=== PATIENT | male | born 1985 | race Caucasian/White ===

== ENCOUNTER 2020-10-11 08:31 | Emergency (ER) | payer BC, SELFPAY ==
--- NOTE | 2020-10-11 08:47 | ED.GENADULT ---
HPI - General Adult General Stated complaint: tooth ache Time Seen by Provider: 10/11/20 08:47 Source: patient Mode of arrival: ambulatory Limitations: no limitations History of Present Illness HPI narrative: 35-year-old male patient presents to the [facility] with complaints of right-sided upper and lower dental pain. Patient states he has had this pain now for about 4 days. Patient states he has had issues with dental infections before in the past. Patient states he does have an appointment to see a dentist this coming October 13 but states he continues to have pain and wanted to see if he needed an antibiotic. Patient states he has been taking Tylenol for pain. Denies fevers, body aches or chills. Denies any nausea, vomiting or diarrhea. Patient is up-to-date on all of his vaccines including his Covid vaccine. Related Data Allergies Allergy/AdvReac Type Severity Reaction Status Date / Time No Known Allergies Allergy Verified 10/11/20 08:56 Review of Systems Review of Systems: Narrative: CONSTITUTIONAL: Denies fever, chills, or sweats. EYES: Denies visual changes, redness, or discharge. ENT: Denies rhinorrhea, congestion, sore throat, or otalgia. Positive right sided upper and lower dental pain x4 days CARDIOVASCULAR: Denies chest pain, palpitations, or edema. RESPIRATORY: Denies cough or dyspnea. GASTROINTESTINAL: Denies abdominal pain, nausea, vomiting, or diarrhea. GENITOURINARY: Denies dysuria or hematuria. SKIN: Denies rash or itching. MUSCULOSKELETAL: Denies back pain, joint pain, or myalgia. NEUROLOGIC: Denies headache, numbness, or weakness. PSYCHIATRIC: Denies anxiety or depression. [facility] Past Medical History Medical History (Updated 10/11/20 @ 09:08 by ANYA Hollins) Hypothyroidism Comments At the time of my signature I agree with nursing past medical history, surgical, social, and family history. There is no relevant family history pertinent to the presenting complaint. Exam Narrative: Exam Narrative: GENERAL: Well-appearing, well-nourished, and in no acute distress. HEAD: Normocephalic, atraumatic. EYES: PERRLA and EOMI. ENT: Nares clear, no rhinorrhea or epistaxis. Mucous membranes moist. Patient has infected dental caries noted to the back 3 lower teeth on the right side with surrounding erythema, swelling and tenderness on palpation. There is no active discharge at this time. Patient also appears to have a hole in one of his teeth on the right upper canine with swelling and erythema present to the gum above it. There is tenderness on palpation to this. No outer cheek swelling noted at this time. Patient able to tolerate secretions well. No obvious abscesses noted at this time. NECK: Supple. No lymphadenopathy CHEST: Clear to auscultation. No respiratory distress. HEART: Regular rate and rhythm. No murmur heard. Normal peripheral pulses. ABDOMEN: Soft, nontender, nondistended, normal active bowel sounds. EXTREMITIES: Normal range of motion. No edema. SKIN: Warm, dry, no rash. NEURO: No focal deficits. Alert and oriented x3. Course Vital Signs Vital signs: Vital Signs Temperature 36.9 C 10/11/20 08:49 Pulse Rate 77 10/11/20 08:49 Respiratory Rate 24 H 10/11/20 08:49 Blood Pressure 156/89 H 10/11/20 08:49 Pulse Oximetry 99 10/11/20 08:49 Temperature 36.9 C 10/11/20 08:49 Pulse Rate 77 10/11/20 08:49 Respiratory Rate 24 H 10/11/20 08:49 Blood Pressure 156/89 H 10/11/20 08:49 Pulse Oximetry 99 10/11/20 08:49 Vital signs reviewed The patient has been informed that they may have pre-hypertension or Hypertension based on a BP reading in the department. I recommend that the patient call the primary care provider listed on their discharge instructions or a physician of their choice this week to arrange follow up for further evaluation of possible pre-hypertension or Hypertension Medical Decision Making Differential Diagnosis Differential Diagnosis: Differential di
[2020-10-11 08:49] VITALS: BP 156/89; PULSE 77; RESP 24; TEMP 36.9; O2SAT 99
== END 2020-10-11 09:01 | disposition home or self-care (01) ==
PROVIDERS: Emergency Provider Nurse Practitioner Family; PCP Nurse Practitioner Adult Health
DX: K02.9 Dental caries, unspecified (principal); E03.9 Hypothyroidism, unspecified
CPT/HCPCS: 99213; G0463

== ENCOUNTER 2024-05-16 09:21 | Emergency (ER) | payer OTHER, SELFPAY ==
[2024-05-16 09:32] VITALS: BP 143/77; PULSE 68; RESP 20; TEMP 36.6; O2SAT 97
--- NOTE | 2024-05-16 09:49 | ED.GENADULT ---
HPI - General Adult General Chief complaint: Upper Respiratory Infection Stated complaint: diarrhea/fatigue/work note Time Seen by Provider: 05/16/24 09:49 Source: patient and RN notes reviewed Mode of arrival: ambulatory Limitations: no limitations History of Present Illness HPI narrative: 38-year-old male presented for complaint of diarrhea. Onset 0300. States he felt queasy last night 2200. Denies abdominal pain, hematochezia, melena, fever or vomiting. Took pepto at 0700. Called into work. Denies sick contacts. Related Data Home Medications ?Medication ?Instructions ?Recorded ?Confirmed ?Last Taken ?Type levothyroxine 75 mcg tablet 10/11/20 Unknown History Allergies Allergy/AdvReac Type Severity Reaction Status Date / Time No Known Allergies Allergy Verified 05/16/24 09:44 Review of Systems Review of Systems: CONSTITUTIONAL: Denies body aches, fever, chills ENT: Denies rhinorrhea, congestion CARDIOVASCULAR: Denies chest pain, palpitations, or edema. RESPIRATORY: Denies cough or dyspnea. GASTROINTESTINAL: Endorses nausea, diarrhea. Denies abdominal pain, vomiting, hematochezia, melena, hematemesis GENITOURINARY: Denies dysuria, hematuria, or CVA tenderness. SKIN: Denies rash MUSCULOSKELETAL: Denies back pain, joint pain, or myalgia. NEUROLOGIC: Denies headache All systems reviewed & are unremarkable except as noted in HPI and below PMFSH Past Medical History Medical History Hypothyroidism Comments At time of signature, I have reviewed and agree with nursing past medical, surgical, social and family history unless otherwise noted. Please see nursing chart for further information. There is no relevant family history pertinent to the presenting complaint Exam Narrative: GENERAL: Well-appearing EYES: EOMI. Conjunctivae normal. ENT: Mucous membranes pink and moist. CHEST: No respiratory distress. Clear to auscultation. HEART: Regular rate and rhythm. No murmur appreciated. Normal peripheral pulses. ABDOMEN: abd soft, nondistended, normal active bowel sounds. large, Nontender abdomen No guarding, rebound tenderness, asymmetry EXTREMITIES: Normal range of motion. SKIN: Warm, dry, no rash. Capillary refill normal. Normal skin turgor. NEURO: No focal deficits. Alert and oriented x3. PSYCH: Normal affect. Course Course Emergency Course: Patient is aware of diagnosis, understands and agrees to treatment plan. Anticipatory guidance given. Patient agrees to follow-up as directed and is aware of reasons to seek care at the emergency department. Portions of this record may have been created with voice recognition software Level of Care: Express Care Visit Vital Signs Vital signs: Vital Signs Temperature 97.8 F 05/16/24 09:32 Pulse Rate 68 05/16/24 09:32 Respiratory Rate 20 05/16/24 09:32 Blood Pressure 143/77 H 05/16/24 09:32 Pulse Oximetry 97 05/16/24 09:32 Oxygen Delivery Room Air 05/16/24 09:32 Temperature 97.8 F 05/16/24 09:32 Pulse Rate 68 05/16/24 09:32 Respiratory Rate 20 05/16/24 09:32 Blood Pressure 143/77 H 05/16/24 09:32 Pulse Oximetry 97 05/16/24 09:32 Oxygen Delivery Room Air 05/16/24 09:32 Medical Decision Making MDM Narrative Medical decision making narrative: Discussed physical exam findings. Advised supportive measures and signs/symptoms to go to the ER. Pt is appropriate for outpt treatment and f/u. Differential Diagnosis Differential Diagnosis: Consider gastroenteritis, GERD, bowel obstruction or perforation, cholecystitis, appendicitis, hernia, mesenteric ischemia, pancreatitis, peritonitis, AAA Vital Signs Vital Signs: Vital Signs Temperature 97.8 F 05/16/24 09:32 Pulse Rate 05/16/24 09:32 Respiratory Rate 20 05/16/24 09:32 Blood Pressure 143/77 H 05/16/24 09:32 Pulse Oximetry 97 05/16/24 09:32 Oxygen Delivery Room Air 05/16/24 09:32 Temperature 97.8 F 05/16/24 09:32 Pulse Rate 68 05/16/24 09:32 Respiratory Rate 20 05/16/24 09:32 Blood Pressure 143/77 H 05/16/24 09:32 Pulse Oximetry 97 05/16/24 09:32 Oxygen Delivery Room Air 05/16/24 09:32 Discharge Plan Discharge Clinical Impression: Acute diarrhea Patient Disposition: Home, Self-Care Condition: Stable Instructions: Antibiotic Form, Acute Diarrhea (ED) Additional Instructions: Stay hydrated. Take small sips of fluid containing electrolytes frequently. Clear liquids (broth, jello, tea, sprite, pedialyte) Smoaks foods (bananas, rice, applesauce, toast, crackers) Avoid fatty, greasy, fried or spicy foods. Limit dairy until symptoms are improved. [id number] Imodium according to package directions for diarrhea Recommend probiotic such as align or lactobacillus to help with symptoms. You should go to the hospital if you experience persistent nausea and vomiting that does not resolve and does not allow you to tolerate any food or fluids, fevers, increasing abdominal pain, persistent diarrhea, dizziness, fainting, or for any other concerns. Follow up with primary care provider in 3 days. Patient Language: Hungarian Prescriptions: No Action levothyroxine 75 mcg tablet Follow-up/Referrals: Luz Ariza APRN [Primary Care Provider] - Stand Alone Forms: Work/School Release IP Time of Disposition: 09:57
== END 2024-05-16 10:00 | disposition home or self-care (01) ==
PROVIDERS: Emergency Provider Nurse Practitioner Family; PCP Nurse Practitioner Adult Health
DX: R19.7 Diarrhea, unspecified (principal); E03.9 Hypothyroidism, unspecified
CPT/HCPCS: 99211; G0463